=== PATIENT | male | born 2000 | race Caucasian/White ===

== ENCOUNTER 2022-03-26 12:28 | Outpatient (CLI) | payer OTHER | END 2022-03-26 12:29 | disposition home or self-care (01) | LOC: CSHWCC 12:28 | PROVIDERS: ATTEND Nurse Practitioner Family | DX: T24.2 Burn of second degree of lower limb, except ankle and foot (principal) | CPT/HCPCS: 99205; G0463 ==